=== PATIENT | female | born 1975 | race African-American/Black ===

== ENCOUNTER 2018-12-03 20:21 | Emergency (ER) | payer SELFPAY ==
[~2018-12-03] VITALS: Ht 162.6 cm; Wt 84.0 kg
[2018-12-03 21:36] LABS: CLARITY URINE TURBID (CLEAR); COLOR URINE ORANGE (YELLOW); KETONES URINE 3+ (NEGATIVE); LEUKOCYTE ESTERASE URINE 2+ (NEGATIVE); NITRITE URINE POSITIVE (NEGATIVE); OCCULT BLOOD URINE 3+ (NEGATIVE); PROTEIN URINE 3+ (NEGATIVE); SPECIFIC GRAVITY URINE 1.024 (1.005-1.030)
[2018-12-03] MEDS ORDERED: KETOROLAC 60MG/2ML VIAL IM ONE (22:30)
[2018-12-03 23:47] LABS: BASOPHILS % 0.8 % (0.0-2.0); HEMATOCRIT. 36.2 % (36.0-48.0); HEMOGLOBIN. 12.6 g/dL (12.0-16.0); LYMPHOCYTES % 15.9 % (20.0-50.0); MEAN CORPUSCULAR HEMOGLOBIN 35.5 pg (28.0-32.0); MEAN CORPUSCULAR VOLUME 102.4 fL (81.0-99.0); MEAN PLATELET VOLUME 9.8 fl (7.4-10.4); MONOCYTES % 11.6 % (2.0-8.0); NEUTROPHILS % 71.7 % (40.0-76.0); PLATELET 82 x1000/uL (130-400); RED BLOOD CELL COUNT 3.54 mill/uL (4.2-5.4); RED CELL DISTRIBUTION WIDTH 17.6 % (11.6-14.6)
[2018-12-03 23:56] LABS: CHLORIDE 99 mEq/L (98-107)
[2018-12-04 00:36] VITALS: BP 141/87
== END 2018-12-04 00:39 | disposition home or self-care (01) ==
LOC: ER 20:21
DX: N39.0 Urinary tract infection, site not specified (principal); K76.0 Fatty (change of) liver, not elsewhere classified; M54.5 Low back pain; F12.10 Cannabis abuse, uncomplicated; Z88.8 Allergy status to other drugs, medicaments and biological substances; Z98.890 Other specified postprocedural states
CPT/HCPCS: 36415; 76705; 80053; 81003; 81025; 85025; 96372; 99284; J1885; Z7610

== ENCOUNTER 2019-08-28 13:46 | Emergency (ER) | payer OTHER ==
[~2019-08-28] VITALS: Ht 162.6 cm; Wt 78.2 kg
[2019-08-28 15:59] LABS: BASOPHILS % 1.1 % (0.0-2.0); EOSINOPHILS % 0.3 % (0.0-5.0); LYMPHOCYTES % 34.8 % (20.0-50.0); MEAN CORPUSCULAR VOLUME 107.4 fL (81.0-99.0); MONOCYTES % 10.2 % (2.0-8.0); NEUTROPHILS % 53.6 % (40.0-76.0); PLATELET 220 x1000/uL (130-400); RED BLOOD CELL COUNT 2.98 mill/uL (4.2-5.4); RED CELL DISTRIBUTION WIDTH 18.4 % (11.6-14.6)
[2019-08-28 16:06] LABS: CHLORIDE 100 mEq/L (98-107)
[2019-08-28 16:16] LABS: CLARITY URINE CLEAR (CLEAR); COLOR URINE DARK YELLOW (YELLOW); KETONES URINE NEGATIVE (NEGATIVE); LEUKOCYTE ESTERASE URINE 2+ (NEGATIVE); NITRITE URINE POSITIVE (NEGATIVE); OCCULT BLOOD URINE NEGATIVE (NEGATIVE); PH URINE 6.5 (4.5-8.0); PROTEIN URINE NEGATIVE (NEGATIVE); SPECIFIC GRAVITY URINE 1.007 (1.005-1.030)
[2019-08-28 16:20] LABS: HCG SCREEN NEGATIVE
[2019-08-28 16:28] LABS: D-DIMER 0.75 mg/L FEU (<0.50); INR 1.2; PROTHROMBIN TIME 12.2 sec (9.6-11.0)
[2019-08-28] MEDS ORDERED: CEFTRIAXONE 1 G PREMIX 50 ML IV ONE (16:45)
[2019-08-28 20:25] VITALS: BP 120/64
== END 2019-08-28 20:28 | disposition home or self-care (01) ==
LOC: ER 13:46
DX: N39.0 Urinary tract infection, site not specified (principal); R22.41 Localized swelling, mass and lump, right lower limb; F12.10 Cannabis abuse, uncomplicated; Z98.890 Other specified postprocedural states
CPT/HCPCS: 36415; 71045; 80053; 81003; 84484; 84703; 85025; 85379; 85610; 93971; 96365; 99284; J0696; Z7610

== ENCOUNTER 2019-09-16 13:29 | Emergency (ER) | payer SELFPAY ==
[~2019-09-16] VITALS: Ht 162.6 cm; Wt 79.9 kg
[2019-09-16 14:05] VITALS: BP 126/67
[2019-09-16] MEDS ORDERED: ALBUTEROL (0.083%) 2.5MG/3ML NEB HHN STA (14:42)
[2019-09-16] MEDS ORDERED: IPRATROPIUM BROMIDE (0.02%) 0.5MG/2.5ML NEB HHN STA (14:42)
== END 2019-09-16 15:47 | disposition home or self-care (01) ==
LOC: ER 13:29
DX: J40 Bronchitis, not specified as acute or chronic (principal); F17.210 Nicotine dependence, cigarettes, uncomplicated; Z71.6 Tobacco abuse counseling
CPT/HCPCS: 94640; 99283; 99406; J7611; Z7610

== ENCOUNTER 2022-02-16 13:25 | Emergency (ER) | payer SELFPAY ==
[~2022-02-16] VITALS: Ht 162.6 cm; Wt 86.0 kg
[~2022-02-16 13:25] MED LIST: ONDA4TAB5 MT
[2022-02-16 15:23] LABS: BASOPHILS % 0.5 % (0.0-2.0); HEMATOCRIT. 37.8 % (36.0-48.0); HEMOGLOBIN. 12.3 g/dL (12.0-16.0); LYMPHOCYTES % 21.3 % (20.0-50.0); MEAN CORPUSCULAR VOLUME 95.1 fL (81.0-99.0); MONOCYTES % 9.4 % (2.0-8.0); NEUTROPHILS % 68.8 % (40.0-76.0); PLATELET 144 x1000/uL (130-400); RED BLOOD CELL COUNT 3.97 mill/uL (4.2-5.4); RED CELL DISTRIBUTION WIDTH 21.4 % (11.6-14.6)
[2022-02-16 15:27] LABS: CHLORIDE 90 mEq/L (98-107)
[2022-02-16 15:32] LABS: HCG SCREEN NEGATIVE
[2022-02-17 00:28] LABS: CLARITY URINE CLOUDY (CLEAR); COLOR URINE DARK YELLOW (YELLOW); KETONES URINE 4+ (NEGATIVE); LEUKOCYTE ESTERASE URINE NEGATIVE (NEGATIVE); NITRITE URINE NEGATIVE (NEGATIVE); OCCULT BLOOD URINE 2+ (NEGATIVE); PROTEIN URINE 3+ (NEGATIVE); SPECIFIC GRAVITY URINE 1.024 (1.005-1.030)
[2022-02-17] MEDS ORDERED: ONDANSETRON 4MG ODT PO STA (00:48)
[2022-02-17] MEDS ORDERED: VISCOUS LIDOCAINE 2% 15 ML UDC PO STA (00:48)
[2022-02-17] MEDS ORDERED: DICYCLOMINE 10 MG/5 ML ORAL SYR PO STA (00:48)
[2022-02-17] MEDS ORDERED: MAGNESIUM/ALUMINUM HYDROXIDE/SIMETHICONE 30ML UDC PO STA (00:48)
[2022-02-17] MEDS ORDERED: POTASSIUM CHLORIDE 20MEQ TABLET SR PO ONE (01:00)
[2022-02-17] MEDS ORDERED: OMEP40CA20 MT (01:02)
[2022-02-17] MEDS ORDERED: ONDA4TAB5 MT (01:02)
[2022-02-17 02:00] VITALS: BP 134/84
== END 2022-02-17 01:43 | disposition home or self-care (01) ==
LOC: ER 13:25
DX: R11.2 Nausea with vomiting, unspecified (principal); R07.0 Pain in throat; Z98.890 Other specified postprocedural states
CPT/HCPCS: 36415; 80053; 81003; 83690; 84703; 85025; 93005; 99284; Q0162

== ENCOUNTER 2022-03-05 21:25 | Emergency (ER) | payer SELFPAY ==
[~2022-03-05] VITALS: Ht 162.6 cm; Wt 107.0 kg
[~2022-03-05 21:25] MED LIST changes: +OMEP40CA20 MT
[2022-03-05 21:59] VITALS: BP 152/74
== END 2022-03-06 03:20 | disposition left against medical advice (07) ==
LOC: ER 21:25
DX: Z53.21 Procedure and treatment not carried out due to patient leaving prior to being seen by health care provider (principal)